=== PATIENT | male | born 1970 | race Caucasian/White ===

== ENCOUNTER → 2017-12-02 | Outpatient (CLI) | payer OTHER ==
--- NOTE | 2017-12-02 12:30 | Diagnostic Imaging Report ---
TECHNIQUE: Magnetic resonance imaging of the LEFT KNEE was performed WITHOUT injected contrast. HISTORY: Left knee pain, value for meniscus tear COMPARISON: None available. FINDINGS: LIGAMENTS AND TENDONS: ACL: Intact PCL: Intact Collateral ligaments: Intact Iliotibial band: Unremarkable Popliteal tendon: Intact Extensor mechanism: Intact JOINT: Menisci: Medial: Complex tear of the body and posterior horn with a dominant horizontal component. Lateral: Intact without tear. Articular Cartilage: Medial Compartment: Diffuse partial thickness cartilage loss with mild subchondral edema at the medial joint line. Lateral Compartment: No focal defect. Patellofemoral Compartment: No focal defect. Joint Fluid: Moderate joint effusion. No Quiroz's cyst. BONE: No acute fracture. SOFT TISSUES: Otherwise, unremarkable. IMPRESSION: Medial meniscus complex tear with dominant horizontal component to the body and posterior horn results in partial thickness cartilage loss. Signed by: Dr. Rickey Heaton M.D. on 12/02/2017 12:22 PM
== END ==
LOC: MRI 10:01
PROVIDERS: ATTEND Specialist
DX: S83.242A Other tear of medial meniscus, current injury, left knee, initial encounter (principal)

== ENCOUNTER → 2017-12-21 | Day surgery (SDC) | payer OTHER ==
[2017-12-20 13:25] LABS: BASOPHILS % 0.5 % (0.0-1.0); EOSINOPHILS # (AUTO) 0.4 (0.0-0.4); EOSINOPHILS % 4.5 % (0.0-6.0); HEMATOCRIT 38.1 % (38.2-49.6); HEMOGLOBIN 12.8 g/dL (14.0-18.0); LYMPHOCYTES # (AUTO) 2.3 (1.0-3.2); LYMPHOCYTES % 27.4 % (18.0-39.1); MEAN CORPUSCULAR HEMOGLOBIN 28.6 pg (28-32); MEAN CORPUSCULAR HGB CONC 33.6 g/dL (31-35); MEAN CORPUSCULAR VOLUME 85.2 fL (81-99); MONOCYTES # (AUTO) 0.9 (0.2-0.8); MONOCYTES % 11.3 % (4.4-11.3); NEUTROPHILS # (AUTO) 4.6 (2.1-6.9); NEUTROPHILS % 55.8 % (38.7-80.0); PLATELET COUNT 192 x10e3/uL (140-360); RED BLOOD COUNT 4.47 x10e6/uL (4.3-5.7); RED CELL DISTRIBUTION WIDTH 13.5 % (11.7-14.4)
[2017-12-20 13:44] LABS: ANION GAP 12.2 mmol/L (8-16); BLOOD UREA NITROGEN 14 mg/dL (7-26); BUN/CREATININE RATIO 16 (6-25); CALCIUM 9.1 mg/dL (8.4-10.2); CARBON DIOXIDE 29 mmol/L (22-29); CHLORIDE 105 mmol/L (98-107); CREATININE, SERUM 0.89 mg/dL (0.72-1.25); EST GLOMERULAR FILTRATION RATE > 60 ML/MIN (60-); GLUCOSE 91 mg/dL (74-118); POTASSIUM 4.2 mmol/L (3.5-5.1); SODIUM 142 mmol/L (136-145)
[~2017-12-21] MED LIST: ACETAMINOPHEN 1000 MG/100 ML IV ONE; AMLODIPINE BESYL5 MG PO; CARVEDILOL12.5 MG PO; CEFAZOLIN SOD 1 GM VIAL ONE; DEXAMETHASONE SOD PHOS INJ 4 MG/ML VIAL ONE; ELIQUIS PO; FENTANYL CITRATE/PF 100MCG/2 ML INJ ONE; FUROSEMIDE40 MG PO; GLYCOPYRROLATE INJ 1MG/ 5 ML SYR ONE; HYDRALAZINE HCL25 MG PO; KETOROLAC TROMETHAMINE 30 MG/ML VIAL ONE; LIDOCAINE HCL 2% LOCAL INJ 5 ML SDV VIAL INJ ONE; LOSARTAN POTAS100 MG PO; MAGNESIUM OXID400 MG PO; MIDAZOLAM HCL 2 MG/2 ML VIAL ONE; MORPHINE SULFATE 2 MG/ML SYR ONE; ONDANSETRON HCL INJ 2 MG/ML VIAL ONE; POTASSIUM CHLO10 ME1 PO; PROPOFOL IV EMULSION 10 MG/ML 20 ML VIAL ONE; SEVOFLURANE INHAL SOLN 250 ML PEN BTL ONE
--- OUTSIDE RECORDS SUMMARY | 2017-12-21 09:49 | XMS REPORT | Clinical Summary ---
Author Author [facility] Organization [facility] Address Unknown Phone Unavailable Care Team Providers Care Tumbler Machine Operator Name Role Phone Asked, Pcp PCP Unavailable Allergies No Known Allergies Current Medications Prescription Sig. Disp. Refills Start End Date Status Date furosemide (LASIX) 40 MG Take 40 mg by mouth Active tablet daily. magnesium oxide 250 mg Take 250 mg by mouth Active tablet daily. carvedilol (COREG) 25 MG Take 25 mg by mouth 2 Active tablet (two) times a day with meals. amIODarone (PACERONE) 400 Take 400 mg by mouth Active MG tablet daily. losartan (COZAAR) 100 MG Take 100 mg by mouth 06/14/20 Active tablet daily. 17 potassium chloride Take 10 mEq by mouth 2 05/15/20 Active (KLOR-CON) 10 MEQ CR (two) times a day. 17 tablet XARELTO 20 mg tablet 20 mg daily. 06/03/20 Active 17 VIAGRA 50 mg tablet 50 mg daily as needed. 04/12/20 Active 17 hydrALAZINE (APRESOLINE) Take 25 mg by mouth 3 07/14/20 Active 25 MG tablet (three) times a day. 17 apixaban (ELIQUIS) 5 mg Take 5 mg by mouth 2 01/03/20 Discontin tablet (two) times a day. 17 ued carvedilol (COREG) 25 MG Take 50 mg by mouth 2 12/24/19 Discontin tablet (two) times a day with 17 ued meals. 2 tabs amLODIPine (NORVASC) 5 MG Take 5 mg by mouth 2 01/03/20 Discontin tablet (two) times a day. 17 ued losartan (COZAAR) 100 MG Take 100 mg by mouth 12/24/19 Discontin tablet daily. 17 ued carvedilol (COREG) 12.5 Take 1 tablet (12.5 mg 60 tablet 0 12/24/19 01/03/20 Discontin MG tablet total) by mouth 2 (two) 17 17 ued times a day for 30 days. aspirin 81 mg chewable Chew 1 tablet (81 mg 30 tablet 0 12/24/19 tablet total) daily for 30 days. 17 17 losartan (COZAAR) 25 MG Take 1 tablet (25 mg 30 tablet 0 12/24/19 tablet total) by mouth daily for 17 17 30 days. traMADol (ULTRAM) 50 mg Take 1 tablet (50 mg 25 tablet 0 12/24/19 tablet total) by mouth every 6 17 17 (six) hours as needed for moderate pain for up to 14 days. metoprolol tartrate Take 1 tablet (50 mg 60 tablet 0 01/03/20 (LOPRESSOR) 50 mg tablet total) by mouth 2 (two) 17 17 times a day for 30 days. diltiazem (CardIZEM) 60 Take 1 tablet (60 mg 90 tablet 0 01/03/20 MG tablet total) by mouth every 8 17 17 (eight) hours for 30 days. potassium chloride Take 1 capsule (10 mEq 30 capsule 0 01/03/2002/17 (MICRO-K) 10 MEQ CR total) by mouth daily for 17 17 capsule 30 days. acetaminophen-codeine Take 1 tablet by mouth 30 tablet 0 01/03/20 (TYLENOL WITH CODEINE #3) every 4 (four) hours as 17 17 300-30 mg per tablet needed for moderate pain for up to 30 days. apixaban (ELIQUIS) 5 mg Take 5 mg by mouth 2 06/17/20 Discontin tablet (two) times a day. 17 ued potassium chloride Take 10 mEq by mouth 06/17/20 Discontin (K-DUR,KLOR-CON) 10 MEQ daily. 17 ued CR tablet amLODIPine (NORVASC) 5 mg Take 5 mg by mouth daily. 06/17/20 Discontin tablet 17 ued Active Problems Problem Noted Date Acute pulmonary edema 12/27/2016 Cardiac tamponade 12/26/2016 Pericardial effusion 12/26/2016 Respiratory insufficiency 12/16/2016 Postoperative pain 12/16/2016 Essential hypertension 12/16/2016 Postoperative anemia due to acute blood loss 12/16/2016 Paroxysmal atrial fibrillation 12/16/2016 S/P Maze operation for atrial fibrillation 12/16/2016 S/P AVR (aortic valve replacement) 12/16/2016 Aortic valve insufficiency 12/14/2016 Atrial fibrillation, persistent 11/02/2016 Persistent atrial fibrillation 09/20/2016 Long QT interval 09/20/2016 Encounters Date Type Specialty Care Team Description 10/05/2017 Orders Only Cardiology Deyvi Santoyo MD 09/19/2017 Office Visit Cardiology Deyvi Santoyo V., Persistent atrial MD fibrillation (Primary Dx) 06/17/2017 Office Visit Cardiology Deyvi Santoyo V., Persistent atrial MD fibrillation (Primary Dx) 04/25/2017 Office Visit Cardiology Deyvi Santoyo V., Atrial fibrillation, unspecified type (Primary Luan Bautista, Dx); Essential hypertension 02/23/2017 Hospital Procedural Cardiology Nikhil Horne MD Atrial fibrillation, Encounter unspecified type 02/23/2017 Anesthesia Procedural Cardiology Radha Ayala Event 02/23/2017 Procedure Pass Procedural Cardiology 02/23/2017 Surgery Procedural Cardiology Nikhil Horne MD Ep cardioversion [16325 (CPT )] 12/26/2016 Anesthesia Cardiothoracic Surgery Duke Mcdonald CRNA Event 12/26/2016 Procedure Pass Cardiothoracic Surgery 12/26/2016 Surgery Cardiothoracic Surgery Chandan Peng MD Creation, Pericardial Window 12/25/2016 Hospital Cardiology Nikhil Horne MD S/P AVR ( aortic valve - Encounter replacement) (Primary 01/02/2017 Dx); Cardiac tamponade 12/14/2016 Hospital Cardiology Nikhil Horne MD Aortic valve - Encounter insufficiency, 12/24/2016 unspecified etiology after 12/20/2016 Immunizations Name Dates Previously Given Next Due INFLUENZA QUAD PF 11/03/2016 Family History Medical History Relation Name Comments Hyperlipidemia Father Diabetes type II Mother Heart attack Mother Relation Name Status Comments Father Mother Social History Tobacco Use Types Packs/Day Years Used Date Never Smoker Smokeless Tobacco: Never Used Tobacco Cessation: Counseling Given: No Alcohol Use Drinks/Week oz/Week Comments Yes seldom Sex Assigned at Date Recorded Not on file Last Filed Vital Signs Vital Sign Reading Time Taken Blood Pressure 158/82 09/19/2017 4:26 PM RELOCATION ASSOCIATE Pulse 53 09/19/2017 4:26 PM RELOCATION ASSOCIATE Temperature 36.6 C (97.8 F) 02/23/2017 9:38 AM CDT Respiratory Rate 19 02/23/2017 12:15 PM CDT Oxygen Saturation 95% 02/23/2017 12:15 PM CDT Inhaled Oxygen - - Concentration Weight 132 kg (290 lb) 09/19/2017 4:26 PM RELOCATION ASSOCIATE Height 180.3 cm (5' 11") 09/19/2017 4:26 PM RELOCATION ASSOCIATE Body Mass Index 40.45 09/19/2017 4:26 PM RELOCATION ASSOCIATE Plan of Treatment Health Maintenance Due Date Last Done Comments INFLUENZA VACCINE 05/31/2017 11/03/2016 Implants Implanted Type Area Painter Maintenance Device Expiration Model / Identifier Date Serial / Lot Lead Pace David Mycrdl Unipol Tmpry Cardiovasc N/A: N/A [employer] [place] - [id number] / Streamline - [id number] ular CARDIAC SRGRY / Implanted: 12/15/2016 (Quantity not Implants on file) Lead Pace David Mycrdl Unipol Tmpry Cardiovasc N/A: N/A [employer] [place] - 6500F / Streamline - [id number] ular CARDIAC SRGRY / Implanted: 12/15/2016 (Quantity not Implants on file) Lead Pace David Mycrdl Unipol Tmpry Cardiovasc N/A: N/A [employer] [place] - 6500F / Streamline - [id number] ular CARDIAC SRGRY / Implanted: 12/15/2016 (Quantity not Implants on file) Valve Aortc Stntd Tiss Annls W/ Cardiovasc N/A: N/A ST RODOLFO 2018 [id number] 29A Linx Ac Tech 29mm Epic - [id number] ular STRUCTURAL 00 / Implanted: 12/16/2016 (Quantity not Implants HEART [id number] on file) [id number] / [id number]^ [id number] Chamber Sgl Iliana Dry Suct 1wy Vlv Surgical N/A: N/A TELEFLEX S 1100 Adlt Pedi - [id number] Implants; MEDICAL 08LF / Implanted: 12/15/2016 (Quantity not Expanders; / on file) Extenders; Surgical Wires Chamber Sgl Iliana Dry Suct 1wy Vlv Surgical N/A: N/A TELEFLEX S 1100 Adlt Pedi - [id number] Implants; MEDICAL 08LF / Implanted: 12/15/2016 (Quantity not Expanders; / on file) Extenders; Surgical Wires Chamber Sgl Iliana Dry Suct 1wy Vlv Surgical N/A: N/A TELEFLEX S 1100 Adlt Pedi - [id number] Implants; MEDICAL 08LF / Implanted: 12/15/2016 (Quantity not Expanders; / on file) Extenders; Surgical Wires [place] Perph Vasclr Ptfe 1.2x10cm Vascular N/A: N/A BARD PERIPHERAL [id number] / 1.65mm - [id number] Graft VASCULAR / Implanted: 12/15/2016 (Quantity not [id number] on file) Patch Vasclr Perph 0.8x8cm Vascular N/A: N/A SANDOVAL 04/26/2021 [id number] / Vascu-Guard - [id number] Graft BIOSCIENCE / Implanted: 12/16/2016 (Quantity not [id number] on file) [id number] Patch Vasclr Perph 2x9cm Vascular N/A: N/A SANDOVAL 01/11/2021 [id number] / Vascu-Guard - [id number] Graft BIOSCIENCE / Implanted: 12/16/2016 (Quantity not [id number] on file) 1265 Procedures Procedure Name Priority Date/Time Associated Diagnosis Comments CV CARDIAC EVENT MONITOR Routine 10/05/2017 12:00 AM RELOCATION ASSOCIATE CV CARDIAC EVENT MONITOR Routine 08/12/2017 12:00 AM CDT EP CARDIOVERSION Routine 02/23/2017 Atrial fibrillation, Results for this 11:25 AM CDT unspecified type procedure are in the results section. ECHOCARDIOGRAM 2D LIMITED Routine 01/02/2017 Results for this 8:30 AM RELOCATION ASSOCIATE procedure are in the results section. ECHOCARDIOGRAM 2D Routine 12/26/2016 Results for this COMPLETE W MMODE SPECTRAL 5:46 PM RELOCATION ASSOCIATE procedure are in the COLOR DOPPLER (24704) results section. OK AN ELECTIVE Routine 12/26/2016 ENDOTRACHEAL AIRWAY 2:51 PM RELOCATION ASSOCIATE Procedure Note - Duke Mcdonald CRNA - 12/26/2016 2:50 PM RELOCATION ASSOCIATE Airway Date/Time: 12/26/2016 2:18 PM Performed by: DUKE MCDONALD Authorized by: FLACA PEREZ Location: OR Urgency: Elective Difficult Airway: No Anesthesio logist: FLACA PEREZ Resident/C RNA: DUKE MCDONALD Performed by: resident/C RNA Preoxygena pavithra with 100% O2: Yes Mask Ventilatio n: Assisted mask (OA) Final Airway Type: Endotrache al airway Final Endotrache al Airway: ETT Cuffed: Yes Technique Used: Video laryngosco py Devices/Me thods Used in Placement: Intubatin g stylet Insertion Site: Oral ETT Size (mm): 8.0 Cuff at minimum occlusion pressure: Yes Measured from: Lips ETT to Lips (cm): 22 Placement Verified by: CO2 detection and direct visualizat ion Laryngosco pic view: Grade I - full view of glottis Rapid Sequence Induction (RSI): No Modified RSI: No Number of Attempts at Approach: 1 Elective glide scope used, previous intubation was Grade I view, OK INSERT NON-TUNNEL CV Routine 12/26/2016 Cardiac tamponade Results for this CATH 1:59 PM RELOCATION ASSOCIATE procedure are in the results section. after 12/20/2016 Results * CV Cardiac event monitor (10/05/2017) * ECG 12 lead (09/19/2017 4:27 PM) Only the most recent of 12 results within the time period is included. Component Value Ref Range Ventricular rate 54 Atrial rate 54 OK interval 192 QRSD interval 104 QT interval 504 QTC interval 477 P axis 1 77 QRS axis 1 79 T wave axis 45 EKG impression Sinus bradycardia-Otherwise normal ECG-In automated comparison with ECG of 17-JUN-2017 15:24,-No significant change was found- Specimen Performing Laboratory [facility] [address] [place] [address] * CV Cardiac event monitor (08/12/2017) * Cv electrophysiology procedure (02/23/2017 11:25 AM) Specimen Performing Laboratory [facility] [address] [place] [address] Narrative Cardiac Catheterization Operative Note Indio Rosario,[id number] y.o. male 02/23/2017; [facility] CARD [facility]UE[facility] 8 PROCEDURE ROOM 14 Procedure(s): Ep cardioversion Tolerated procedure well Condition: stable Complications:None; patient tolerated the procedure well. Findings: see note Procedure Details See note Pre-op Diagnosis: Atrial fibrillation, unspecified type [I48.91] Post-Op Diagnosis Codes: * Atrial fibrillation, unspecified type [I48.91] Surgeon(s) and Role: * Nikhil Horne MD - Primary Anesthesia: Anesthesia type not filed in the log. Blood Products Administered:none * Echocardiogram 2d limited (01/02/2017 8:30 AM) Specimen Performing Laboratory [facility] [address] [place] [address] Narrative Echocardiography Report [address] [address], [place] [address] Pat.Name:INDIO ROSARIO.ID:[id number] .Date: 01/02/2017Refer.MD:NIKHIL HORNE MD Exam Time: 8:01:00 AMStudy Type:Routine Echo Height:71inWeight:257lb BSA: 2.35 m2 DOBAge:1970 ,46Y Sex: MALEBP: 133/81 HR:64 bpmSonogrphr: FROILAN Clifton Pat. Stat.:Inpatient Room:[facility]0 A Study Status:Final Echo Event ID:[id number] Order ID:[id number] Reason for Study:S/P pericardial tamponade History / Clinical:Arrhythmias, Hypertension Procedures:2D Echo Race:C SUMMARY: No pericardial effusion. FINDINGS: LV: LV size is mildly enlarged. LV function is moderately depressed.Estimated EF is 35-39%. Overall wall motion is hypokinetic. RV: RV size is normal. RV function is mildly depressed. RV wall motionis mildly hypokinetic. LA: LA size is normal. RA: RA size is normal. AO: Aortic root diameter is mildly enlarged. KOURTNEY: No pericardial effusion. AV: Bioprosthetic aortic valve. Normal prosthetic valve velocity andgradient. Surgical Prosthetic AV Doppler velocity index is0.38 (normal>0.25). MV: No structural MV abnormalities noted. A trace of mitral regurgitation. PV: No structural PV abnormalities noted. TV: No structural TV abnormalities noted. Menjivar: LV relaxation is impaired. LV filling pressure is elevated. Other:Insufficient TR jet to estimate PA systolic pressure. MEASUREMENTS: 2D Parasternal [place] LVOT 2.4 cmIVSd 1 cm LVIDd5.8 cmIndex 2.5 cm/m LVPWd1.1 cm LVIDs4.7 cmLA Ds 5.2 cm LV%fs 18.3 % Ao Rtd 4 cm Index1.7 cm/m LA Sng Plane LA Area 19.8 cm2(8.8-23.4) LA Vol 56 ml Index23.8 ml/m LA LngAx 5.9 cm DOPPLER AV For Flow/MELANY AV pkVel 239.3 cm/s (100-170) AV AC/ET 0.5 AV mnVel 171.4 cm/Jessi TVI 46.9 cm AV pkPG 22.9 mmHgAVpkAcRt 6125.5 cm/s2 AV Mean G 13.8 mmHgAV DeRt 874.9 cm/s2 AV AC143 msec (83-118) AV Area1.8 cm2(3-5) AV ET274 msec LVOT For Flow LVOT Area4.5 cm2 LVOT SV 82.8 ml LVOTpkVel 87.2 cm/sHR 62 bpm LVOTpkPG 3 mmHgLVOT CO 5.1 l/min LVOTmnPG 2 mmHgLVOT CI 2.2 l/m/m2 LVOT TVI18.3 cm Signed 01/02/2017 02:54 PM Kamini Moeller M.D. Procedure Note Interface, Radiology Results In - 01/02/2017 2:55 PM [facility] Echocardiography Report [id number] [address] Pat.Name: INDIO ROSARIO.ID: [id number] .Date: 01/02/2017 Refer.MD: NIKHIL HORNE MD Exam Time: 8:01:00 AM Study Type:Routine Echo Height: 71in Weight: 257lb BSA: 2.35 m2 Age: 5 1970,46Y Sex: MALE BP: 133/81 HR: 64 bpm Sonogrphr: FROILAN Clifton Pat. Stat.:Inpatient Room: 970 A Study Status:Final Echo Event ID:[id number] Order ID: [id number] Reason for Study:S/P pericardial tamponade History / Clinical:Arrhythmias, Hypertension Procedures:2D Echo Race: C SUMMARY: No pericardial effusion. FINDINGS: LV: LV size is mildly enlarged. LV function is moderately depressed. Estimated EF is 35-39%. Overall wall motion is hypokinetic. RV: RV size is normal. RV function is mildly depressed. RV wall motion is mildly hypokinetic. LA: LA size is normal. RA: RA size is normal. AO: Aortic root diameter is mildly enlarged. KOURTNEY: No pericardial effusion. AV: Bioprosthetic aortic valve. Normal prosthetic valve velocity and gradient. Surgical Prosthetic AV Doppler velocity index is 0.38 (normal>0.25). MV: No structural MV abnormalities noted. A trace of mitral regurgitation. PV: No structural PV abnormalities noted. TV: No structural TV abnormalities noted. Menjivar: LV relaxation is impaired. LV filling pressure is elevated. Other: Insufficient TR jet to estimate PA systolic pressure. MEASUREMENTS: 2D Parasternal [place] LVOT 2.4 cm IVSd 1 cm LVIDd 5.8 cm Index 2.5 cm/m LVPWd 1.1 cm LVIDs 4.7 cm LA Ds 5.2 cm LV%fs 18.3 % Ao Rtd 4 cm Index 1.7 cm/m LA Sng Plane LA Area 19.8 cm2 (8.8-23.4) LA Vol 56 ml Index 23.8 ml/m LA LngAx 5.9 cm DOPPLER AV For Flow/MELANY AV pkVel 239.3 cm/s (100-170) AV AC/ET 0.5 AV mnVel 171.4 cm/s AV TVI 46.9 cm AV pkPG 22.9 mmHg AVpkAcRt 6125.5 cm/s2 AV Mean G 13.8 mmHg AV DeRt 874.9 cm/s2 AV AC 143 msec (83-118) AV Area 1.8 cm2 (3-5) AV ET 274 msec LVOT For Flow LVOT Area 4.5 cm2 LVOT SV 82.8 ml LVOTpkVel 87.2 cm/s HR 62 bpm LVOTpkPG 3 mmHg LVOT CO 5.1 l/min LVOTmnPG 2 mmHg LVOT CI 2.2 l/m/m2 LVOT TVI 18.3 cm Signed 01/02/2017 02:54 PM Kamini Moeller M.D. * Estimated GFR (01/02/2017 4:00 AM) Only the most recent of 14 results within the time period is included. Component Value Ref Range GFR Non Af Amer >90 mL/min/1.73 m2 GFR Af Amer >90 mL/min/1.73 m2 Comment: Chronic kidney disease: <60 mL/min/1.73m2 Kidney failure: <15 mL/min/1.73m2 The estimated GFR is calculated from the IDMS-traceable Modification of Diet in Renal Disease Equation. The accuracy of the calculation is poor when the creatinine is normal. Calculated values >90 mL/min/1.73m2 are not reported. This equation has not been validated in children (<18 years), women, the elderly (>70 years), or ethnic groups other than Caucasians and Americans. Specimen Performing Laboratory Plasma specimen [facility] DEPARTMENT OF PATHOLOGY AND GENOMIC MEDICINE [address] [place] [address] * Basic metabolic panel (01/02/2017 4:00 AM) Only the most recent of 13 results within the time period is included. Component Value Ref Range Sodium 142 135 - 148 mEq/L Potassium 3.7 3.5 - 5.0 mEq/L Chloride 100 98 - 112 mEq/L CO2 31 24 - 31 mEq/L Anion gap 11 7 - 15 mEq/L Comment: Starting from January , anion gap calculation no longer incorporates potassium. Please note the change. BUN 16 6 - 20 mg/dL Creatinine 0.9 0.7 - 1.2 mg/dL Glucose 85 65 - 99 mg/dL Calcium 8.6 8.3 - 10.2 mg/dL Specimen Performing Laboratory Plasma specimen [facility] DEPARTMENT OF PATHOLOGY AND GENOMIC [address] [address] * XR Chest 1 Vw Portable (12/31/2016 2:35 PM) Only the most recent of 9 results within the time period is included. Specimen Performing Laboratory [facility] [address] [place] [address] Narrative EXAMINATION: XR CHEST 1 VW PORTABLE CLINICAL HISTORY: Chest Tube Removal COMPARISON: Portable chest, obtained on 12/31/2016 at 0657 hours. FINDINGS: Progress examination again demonstrates postoperative changes from sternotomy. Pleural drainage tube is not appreciated. Vascular congestion, pleural fluid and pneumothorax are not seen. Left basilar volume loss is decreasing. Cardiac and mediastinal silhouettes are unchanged. IMPRESSION: Improving appearance the chest. [facility]-[id number] Procedure Note Interface, Radiology Results Incoming - 12/31/2016 2:44 PM RELOCATION ASSOCIATE EXAMINATION: XR CHEST 1 VW PORTABLE CLINICAL HISTORY: Chest Tube Removal COMPARISON: Portable chest, obtained on 12/31/2016 at 0657 hours. FINDINGS: Progress examination again demonstrates postoperative changes from sternotomy. Pleural drainage tube is not appreciated. Vascular congestion, pleural fluid and pneumothorax are not seen. Left basilar volume loss is decreasing. Cardiac and mediastinal silhouettes are unchanged. IMPRESSION: Improving appearance the chest. [facility]-[id number] * POC glucose (12/30/2016 12:16 PM) Only the most recent of 31 results within the time period is included. Component Value Ref Range POC glucose 99 65 - 99 mg/dL Comment: [facility] Notified RN Meter ID: [id number] [employer] Principal: Claudio Eli Specimen Performing Laboratory [facility] [place] [address] * CBC hemogram (12/30/2016 4:57 AM) Only the most recent of 4 results within the time period is included. Component Value Ref Range WBC 11.03 (H) 4.50 - 11.00 k/uL RBC 2.83 (L) 4.40 - 6.00 m/uL HGB 8.3 (L) 14.0 - 18.0 g/dL HCT 25.5 (L) 41.0 - 51.0 % MCV 90.1 82.0 - 100.0 fL MCH 29.3 27.0 - 34.0 pg MCHC 32.5 31.0 - 37.0 g/dL RDW - SD 44.9 37.0 - 55.0 fL MPV 9.9 8.8 - 13.2 fL Platelet count 279 150 - 400 k/uL Nucleated RBC 0.00 /100 WBC Specimen Performing Laboratory Blood [facility] DEPARTMENT OF PATHOLOGY AND GENOMIC MEDICINE [address] [place] [address] Narrative CBC only; Does not include a differential Deliver specimen immediately to the Core Laboratory. * Phosphorus level (12/30/2016 4:57 AM) Only the most recent of 8 results within the time period is included. Component Value Ref Range Phosphorus 3.7 2.4 - 4.5 mg/dL Specimen Performing Laboratory Plasma specimen [facility] DEPARTMENT OF PATHOLOGY AND GENOMIC MEDICINE [address] [place] [address] Narrative CBC only; Does not include a differential Deliver specimen immediately to the Core Laboratory. * Magnesium level (12/30/2016 4:57 AM) Only the most recent of 10 results within the time period is included. Component Value Ref Range Magnesium 1.9 1.6 - 2.6 mg/dL Specimen Performing Laboratory Plasma specimen [facility] DEPARTMENT PATHOLOGY AND [facility] MEDICINE [address] [place] [address] Narrative CBC only; Does not include a differential Deliver specimen immediately to the Core Laboratory. * Ionized calcium (12/30/2016 4:57 AM) Only the most recent of 4 results within the time period is included. Component Value Ref Range pH 7.52 Ionized calcium 1.08 (L) 1.11 - 1.32 mmol/L Specimen Performing Laboratory Plasma specimen [facility] DEPARTMENT OF PATHOLOGY AND GENOMIC MEDICINE [address] [place] [address] Narrative CBC only; Does not include a differential Deliver specimen immediately to the Core Laboratory. * CBC with platelet and differential (12/29/2016 2:50 AM) Only the most recent of 6 results within the time period is included. Component Value Ref Range WBC 11.31 (H) 4.50 - 11.00 k/uL RBC 2.77 (L) 4.40 - 6.00 m/uL HGB 8.1 (L) 14.0 - 18.0 g/dL HCT 25.1 (L) 41.0 - 51.0 % MCV 90.6 82.0 - 100.0 fL MCH 29.2 27.0 - 34.0 pg MCHC 32.3 31.0 - 37.0 g/dL RDW - SD 45.0 37.0 - 55.0 fL MPV 10.1 8.8 - 13.2 fL Platelet count 289 150 - 400 k/uL Nucleated RBC 0.00 /100 WBC Neutrophils 65.6 39.0 - 69.0 % Lymphocytes 20.5 (L) 25.0 - 45.0 % Monocytes 10.9 (H) 0.0 - 10.0 % Eosinophils 1.7 0.0 - 5.0 % Basophils 0.2 0.0 - 1.0 % Immature granulocytes 1.1 (H)Comment: "Immature granulocytes" 0.0 - 1.0 % (promyelocytes, myelocytes, metamyelocytes) Specimen Performing Laboratory Blood [facility] DEPARTMENT OF PATHOLOGY AND GENOMIC MEDICINE [address] [place] [address] Narrative Deliver specimen immediately to the Core Laboratory. * Partial thromboplastin time (12/28/2016 1:50 AM) Only the most recent of 3 results within the time period is included. Component Value Ref Range PTT 30.6 23.0 - 36.0 sec Comment: PTT therapeutic range for unfractionated heparin is 61.0-112.0 seconds which corresponds to Anti-Xa 0.3-0.7 U/ml. Specimen Performing Laboratory Blood [facility] DEPARTMENT OF PATHOLOGY AND GENOMIC MEDICINE [address] [place] [address] Narrative Deliver specimen immediately to the Core Laboratory. * Prothrombin time with INR (12/28/2016 1:50 AM) Only the most recent of 4 results within the time period is included. Component Value Ref Range Prothrombin time 18.4 (H) 12.0 - 15.0 sec INR 1.5 Comment: The International Normalized Ratio (INR) is a therapeutic monitoring tool for patients who are stable on oral anticoagulant therapy. An INR of 2.0-3.0 is suggested for deep vein thrombosis/pulmonary embolism. Specimen Performing Laboratory Blood [facility] PATHOLOGY [facility] MEDICINE [address] [place] [address] Narrative Deliver specimen immediately to the Core Laboratory. * Potassium, syringe (12/27/2016 10:54 AM) Only the most recent of 2 results within the time period is included. Component Value Ref Range Potassium, syringe 3.2 (L) 3.5 - 5.0 mEq/L Specimen Performing Laboratory Blood [facility] [place] [address] * Arterial blood gas (12/27/2016 10:54 AM) Only the most recent of 4 results within the time period is included. Component Value Ref Range pH, arterial 7.47 (H) 7.35 - 7.45 pCO2, arterial 32 (L) 35 - 45 mmHg pO2, arterial 152 (H) 80 - 90 mmHg Bicarbonate, arterial 23.1 21.0 - 28.0 mmol/L Base excess, arterial 0 -2 - 2 mEq/L O2 saturation, arterial 99 95 - 100 % Specimen Performing Laboratory Blood [facility] [place] [address] * Ionized calcium, arterial (12/27/2016 2:00 AM) Only the most recent of 3 results within the time period is included. Component Value Ref Range Ionized calcium, arterial 1.00 (L) 1.11 - 1.32 mmol/L Specimen Performing Laboratory Blood [facility] [place] [address] Narrative Deliver specimen immediately to the Core Laboratory. * Echocardiogram complete w contrast and 3D if needed (12/26/2016 5:46 PM) [facility] [address] [place] [address] Narrative Echocardiography Report [address] [place] [address] Pat.Name:INDIO ROSARIO Marlene.ID:[id number] .Date: 12/26/2016 Refer.MD:NIKHIL HORNE MD Exam Time: 4:12:00 PMStudy Type:Routine Echo Height:71inWeight:278lb BSA: 2.43 m2 DOBAge:1970 ,46Y Sex: MALEBP: 106/58 HR:129 bpm Sonogrphr: Maximiliano Swann RDCS [address] Status:Final Echo Event ID:[id number] Order ID:[id number] Reason for Study:Routine re-eval for surveillance of known ascending aortic dilation or hx of aortic dissection without a change in clinical status or cardiac exam when findings would not casino change attendant or therapy History / Clinical:Arrhythmias, Hypertension Procedures:2D Echo, Colorflow Doppler, Portable, Intravenous Optison Contrast Race:C FINDINGS: LV: LV size is mildly enlarged. There is moderate eccentric LV hypertrophy.[ LV mass 331 g/ LVMI 132 g/m2 and RWT 0.41] . LVfunction is mildly depressed. Septal motion is paradoxicalsecondary to cardiac surgery. Estimated EF is 45-49%.Biplane LVEF toassess regional wall motion. RV: RV size is normal. RV function is normal. LA: LA volume is mildly enlarged. RA: RA size is normal. AO: Aortic root diameter is not well visualized but grossly appearsmildly enlarged. KOURTNEY: Small posterolateral pericardial effusion. PLE:Pleural effusion is present. AV: Bioprosthetic aortic valve [29 mm Epic tissue valve] Normal prostheticvalve velocity and gradient. Surgical Prosthetic AVDoppler velocity index is 0.44 (normal>0.25). MV: Mild mitral annular calcification. PV: No structural PV abnormalities noted. A trace of pulmonic regurgitation. TV: No structural TV abnormalities noted. A trace of tricuspid regurgitation Other:Insufficient TR jet to estimate PA systolic pressure. MEASUREMENTS: 2D Parasternal [place] LVOT 2.6 cmLVPWd 1.2 cm LVIDd5.8 cmIndex 2.4 cm/m LA Ds5.4 cm LVIDs4.1 cmAo An 2.4 cm LV%fs 28.1 % Ao Rtd 4 cm Index1.6 cm/m IVSd 1.4 cm LV EF Biplane LTHTF780.2 ml (65-193) Index99.7 ml/m LV SV110.6 ml RZCEP697.5 mlLV EF 45.7 %(63-77) LA Sng Plane LA Area 26.4 cm2(8.8-23.4) LA Vol90.5 ml Index37.3 ml/m LA LngAx 6.4 cm RA Sng Plane RA Area 21.3 cm2(8.3-19.5) RA Vol 65 ml Index26.8 ml/m RA LngAx 6.1 cm DOPPLER AV For Flow/MELANY AV pkVel 279.4 cm/s (100-170) AV AC/ET 0.4 AV mnVel 181.6 cm/Jessi TVI 59.3 cm AV pkPG 31.2 mmHgAVpkAcRt 3451 cm/s2 AV Mean G 16.9 mmHgAV DeRt 855.9 cm/s2 AV AC136 msec (83-118) AV Area2.3 cm2(3-5) AV ET326 msec LVOT For Flow LVOT Area5.3 cm2 LVOT SV 136.8 ml SKGYrkSdv328.2 cm/sHR 52.9 bpm LVOTpkPG 7.3 mmHgLVOT CO 7.2 l/min LVOTmnPG 3.6 mmHgLVOT CI 3 l/m/m2 LVOT TVI25.8 cm Signed 12/26/2016 08:39 PM Nicky Johnson MD Procedure Note Interface, Radiology Results In - 12/26/2016 8:39 PM [employer] Echocardiography Report [id number]Name: INDIO ROSARIO Marlene.ID: [id number] .Date: 12/26/2016 Refer.MD: NIKHIL HORNE MD Exam Time: 4:12:00 PM Study Type:Routine Echo Height: 71in Weight: 278lb BSA: 2.43 m2 Age: 5 1970,46Y Sex: MALE BP: 106/58 HR: 129 bpm Sonogrphr: Maximiliano Swann RDCS Room: [place] [address] Study Status:Final Echo Event ID:[id number] Order ID: [id number] Reason for Study:Routine re-eval for surveillance of known ascending aortic dilation or hx of aortic dissection without a change in clinical status or cardiac exam when findings would not casino change attendant or therapy History / Clinical:Arrhythmias, Hypertension Procedures:2D Echo, Colorflow Doppler, Portable, Intravenous Optison Contrast Race: C FINDINGS: LV: LV size is mildly enlarged. There is moderate eccentric LV hypertrophy. [ LV mass 331 g/ LVMI 132 g/m2 and RWT 0.41]. LV function is mildly depressed. Septal motion is paradoxical secondary to cardiac surgery. Estimated EF is 45-49%. Biplane LVEF to assess regional wall motion. RV: RV size is normal. RV function is normal. LA: LA volume is mildly enlarged. RA: RA size is normal. AO: Aortic root diameter is not well visualized but grossly appears mildly enlarged. KOURTNEY: Small posterolateral pericardial effusion. PLE: Pleural effusion is present. AV: Bioprosthetic aortic valve [29 mm Epic tissue valve] Normal prosthetic valve velocity and gradient. Surgical Prosthetic AV Doppler velocity index is 0.44 (normal>0.25). MV: Mild mitral annular calcification. PV: No structural PV abnormalities noted. A trace of pulmonic regurgitation. TV: No structural TV abnormalities noted. A trace of tricuspid regurgitation Other: Insufficient TR jet to estimate PA systolic pressure. MEASUREMENTS: 2D Parasternal [place] LVOT 2.6 cm LVPWd 1.2 cm LVIDd 5.8 cm Index 2.4 cm/m LA Ds 5.4 cm LVIDs 4.1 cm Ao An 2.4 cm LV%fs 28.1 % Ao Rtd 4 cm Index 1.6 cm/m IVSd 1.4 cm LV EF Biplane LVEDV 242.2 ml (65-193) Index 99.7 ml/m LV SV 110.6 ml LVESV 131.5 ml LV EF 45.7 % (63-77) LA Sng Plane LA Area 26.4 cm2 (8.8-23.4) LA Vol 90.5 ml Index 37.3 ml/m LA LngAx 6.4 cm RA Sng Plane RA Area 21.3 cm2 (8.3-19.5) RA Vol 65 ml Index 26.8 ml/m RA LngAx 6.1 cm DOPPLER AV For Flow/MELANY AV pkVel 279.4 cm/s (100-170) AV AC/ET 0.4 AV mnVel 181.6 cm/s AV TVI 59.3 cm AV pkPG 31.2 mmHg AVpkAcRt 3451 cm/s2 AV Mean G 16.9 mmHg AV DeRt 855.9 cm/s2 AV AC 136 msec (83-118) AV Area 2.3 cm2 (3-5) AV ET 326 msec LVOT For Flow LVOT Area 5.3 cm2 LVOT SV 136.8 ml LVOTpkVel 135.2 cm/s HR 52.9 bpm LVOTpkPG 7.3 mmHg LVOT CO 7.2 l/min LVOTmnPG 3.6 mmHg LVOT CI 3 l/m/m2 LVOT TVI 25.8 cm Signed 12/26/2016 08:39 PM Nicky Johnson MD * ECG Pre/Post Op (12/26/2016 4:01 PM) Component Value Ref Range Ventricular rate 53 Atrial rate 53 OK interval 188 QRSD interval 100 QT interval 534 QTC interval 501 P axis 1 82 QRS axis 1 72 T wave axis 96 EKG impression Sinus bradycardia-Nonspecific T wave abnormality-Prolonged QT-Abnormal ECG-In automated comparison with ECG of 26-DEC-2016 12:21,-Nonspecific T wave abnormality no longer evident in Anterior leads-Reconfirmed by Wing BARNES, Benita Min ([id number]) on 12/27/2016 7:04:26 PM Specimen Performing Laboratory [facility] [address] [place] [address] * Fungus smear (12/26/2016 3:03 PM) Component Value Ref Range Fungus smear No fungi observed. Comment: Specimen Information Specimen Source: Pericardial fluid Specimen Site: Pericardium Specimen Performing Laboratory Pericardial fluid - [facility] DEPARTMENT OF PATHOLOGY AND GENOMIC MEDICINE Pericardium [address] [place] [address] * Aerobic culture (12/26/2016 3:03 PM) Component Value Ref Range Aerobic culture isolate No growth after 3 days. Comment: Specimen Information Specimen Source: Pericardial fluid Specimen Site: Pericardium Specimen Performing Laboratory Pericardial fluid - [facility] DEPARTMENT OF PATHOLOGY AND [facility] [place] [address] * Gram stain (12/26/2016 3:03 PM) Component Value Ref Range Gram stain isolate Occasional WBC's No organisms seen Comment: Specimen Information Specimen Source: Pericardial fluid Specimen Site: Pericardium Specimen Performing Laboratory Pericardial fluid - [facility] DEPARTMENT OF PATHOLOGY AND [facility] [place] [address] * AFB stain (12/26/2016 3:03 PM) Component Value Ref Range AFB stain No acid fast bacilli (AFB) seen. Comment: Specimen Information Specimen Source: Pericardial fluid Specimen Site: Pericardium Specimen Performing Laboratory Pericardial fluid [facility] DEPARTMENT OF PATHOLOGY [place] [address] * Anaerobic culture (12/26/2016 3:03 PM) Component Value Ref Range Anaerobic culture isolate No anaerobic organisms isolated. Comment: Specimen Information Specimen Source: Pericardial fluid Specimen Site: Pericardium Specimen Performing Laboratory Pericardial fluid [facility] DEPARTMENT OF PATHOLOGY AND GENOMIC MEDICINE Pericardium [address] [place] [address] * Sodium level, syringe (12/26/2016 2:32 PM) Component Value Ref Range Sodium, syringe 131 (L) 135 - 148 mEq/L Specimen Performing Laboratory Blood [facility] DEPARTMENT OF PATHOLOGY AND GENOMIC MEDICINE [address] [place] [address] * Hemoglobin, syringe (12/26/2016 2:32 PM) Component Value Ref Range Hemoglobin, syringe 8.0 (L) 14.0 - 18.0 g/dL Specimen Performing Laboratory Blood [facility] DEPARTMENT OF PATHOLOGY AND GENOMIC MEDICINE [address] [place] [address] * Glucose level, syringe (12/26/2016 2:32 PM) Component Value Ref Range Glucose, syringe 122 (H) 65 - 99 mg/dL Specimen Performing Laboratory Blood [facility] DEPARTMENT OF PATHOLOGY AND GENOMIC MEDICINE [address] [place] [address] * Arterial blood gas, corrected (12/26/2016 2:32 PM) Component Value Ref Range pH, arterial 7.35 7.35 - 7.45 pCO2, arterial 37 35 - 45 mmHg pO2, arterial 146 (H) 80 - 90 mmHg Temperature, Celsius 37.0 Degrees C O2 saturation, arterial 99 95 - 100 % pH, arterial corrected 7.35 pCO2, arterial corrected 37 mmHg pO2, arterial corrected 146 mmHg Base excess, arterial -5 (L) -2 - 2 mEq/L Specimen Performing Laboratory Blood [facility] DEPARTMENT OF PATHOLOGY AND GENOMIC MEDICINE [address] [place] [address] * AFB culture (12/26/2016 2:03 PM) Component Value Ref Range AFB culture isolate No growth after 6 weeks of incubation. Comment: Specimen Information Specimen Source: Pericardial fluid Specimen Site: Pericardium Specimen Performing Laboratory Pericardial fluid - [facility] DEPARTMENT OF PATHOLOGY AND GENOMIC MEDICINE Pericardium [address] [place] [address] * Fungus culture (12/26/2016 2:03 PM) Component Value Ref Range Fungus culture isolate No growth after 4 weeks of incubation. Comment: Specimen Information Specimen Source: Pericardial fluid Specimen Site: Pericardium Specimen Performing Laboratory Pericardial fluid - [facility] DEPARTMENT OF PATHOLOGY AND GENOMIC MEDICINE Pericardium [address] [place] [address] * CENTRAL LINE (12/26/2016 1:59 PM) Narrative Trung Cox MD 12/26/20161:59 PM Central Line Insertion Performed by: TRUNG COX Authorized by: TRUNG COX Consent: Consent obtained:Verbal and emergent situation Consent given by:Patient Risks discussed:Arterial puncture, incorrect placement, nerve damage, pneumothorax, infection and bleeding [place] protocol: Patient identity confirmed:Verbally with patient Pre-procedure details: Hand hygiene: Hand hygiene performed prior to insertion Sterile barrier technique: All elements of maximal sterile technique followed Skin preparation:2% chlorhexidine Skin preparation agent: Skin preparation agent completely dried prior to procedure Anesthesia (see MAR for exact dosages): Anesthesia method:Local infiltration Local anesthetic:Lidocaine 1% w/o epi Procedure details: Catheter type:Triple lumen Catheter size:8 Fr Catheter site: internal jugular vein Catheter Site Laterality:Right Landmarks identified: yes Ultrasound guidance: yes Sterile ultrasound techniques: Sterile gel and sterile probe covers were used Number of attempts:1 Successful placement: yes Post-procedure details: Post-procedure:Dressing applied and line sutured Assessment:Blood return through all ports and free fluid flow Patient tolerance of procedure:Tolerated well, no immediate complications * Insert arterial line (12/26/2016 1:57 PM) Narrative Trung Cox MD 12/26/20161:57 PM Arterial Line Insertion Date/Time: 12/26/2016 1:57 PM Performed by: TRUNG COX Authorized by: TRUNG COX Consent: Consent obtained:Verbal and emergent situation Consent given by:Patient Indications: Indications: hemodynamic monitoring and multiple ABGs Pre-procedure details: Skin preparation:2% Chlorhexidine Preparation: Patient was prepped and draped in sterile fashion Anesthesia (see MAR for exact dosages): Anesthesia method:Local infiltration Local anesthetic:Lidocaine 1% w/o epi Procedure details: Location:R radial Narayan's test performed: no Needle gauge:20 G Placement technique:Seldinger and ultrasound guided Number of attempts:2 Transducer: waveform confirmed Post-procedure details: Post-procedure:Sterile dressing applied and sutured CMS:Normal and unchanged Patient tolerance of procedure:Tolerated well, no immediate complications * Prepare RBC, 4 Units (12/26/2016 10:40 AM) Component Value Ref Range Product name Red Blood Cells -1, Leukored Unit number [id number] Product code [id number] Dispense status Transfused Blood expiration date 20161228 Blood type code 9500 Blood type O NEGATIVE Product name Apheresis Red Cell AS3 #2 LR Unit number [id number] Product code [id number] Dispense status Returned to BB not transfused Blood expiration date 20161228 Blood type code 9500 Blood type O NEGATIVE Product name Red Blood Cells -1, Leukored Unit number [id number] Product code [id number] Dispense status Returned to BB not transfused Blood expiration date 20170128 Blood type code 9500 Blood type O NEGATIVE Product name Red Blood Cells -1, Leukored Unit number [id number] Product code [id number] Dispense status Returned to not transfused Blood expiration date 20170119 Blood type code 9500 Blood type O NEGATIVE Specimen Performing Laboratory [facility] DEPARTMENT OF PATHOLOGY AND [facility] MEDICINE [address] [place] [address] * Type and screen (12/26/2016 10:40 AM) Component Value Ref Range ABO grouping O Rh type NEG Antibody screen (gel) NEG Specimen Performing Laboratory Blood [facility] [place] [address] * Lactic acid level (12/26/2016 10:40 AM) Only the most recent of 2 results within the time period is included. Component Value Ref Range Lactic acid 2.8 (H) 0.5 - 2.2 mmol/L Specimen Performing Laboratory Plasma specimen [facility] [place] [address] * Comprehensive metabolic panel (12/26/2016 10:40 AM) Component Value Ref Range Sodium 132 (L) 135 - 148 mEq/L Potassium 5.5 (H) 3.5 - 5.0 mEq/L Chloride 95 (L) 98 - 112 mEq/L CO2 20 (L) 24 - 31 mEq/L Anion gap 17 (H) 7 - 15 mEq/L Comment: Starting from January , anion gap calculation no longer incorporates potassium. Please note the change. BUN 49 (H) 6 - 20 mg/dL Creatinine 3.6 (H) 0.7 - 1.2 mg/dL Glucose 109 (H) 65 - 99 mg/dL Calcium 8.1 (L) 8.3 - 10.2 mg/dL Protein 6.3 6.3 - 8.3 g/dL Comment: 4.6-7.0 g/dL 1 week 4.4-7.6 g/dL 7 months-1year 5.1-7.3 g/dL 1-2 years 5.6-7.5 g/dL >3 years 6.0-8.0 g/dL 18-150 6.3-8.3 g/dL Albumin 2.6 (L) 3.5 - 5.0 g/dL A/G ratio 0.7 0.7 - 3.8 Alkaline phosphatase 68 40 - 129 U/L AST 904 (H) 10 - 50 U/L ALT 1,016 (H) 5 - 50 U/L Total bilirubin 0.7 0.0 - 1.2 mg/dL Specimen Performing Laboratory Plasma specimen [facility] DEPARTMENT OF PATHOLOGY AND GENOMIC MEDICINE [address] [place] [address] * Troponin (12/26/2016 12:02 AM) Component Value Ref Range Troponin <0.30 0.00 - 0.30 ng/mL Comment: 0.30 - 1.49 ng/ml May indicate increased risk of acute coronary syndrome. >=1.5 ng/ml Consistent with acute myocardial infarction. The diagnostic value of a single normal or non-diagnostic result is questionable. Serial samples at 2-6 hour intervals are required to rule out acute myocardial injury. Specimen Performing Laboratory Plasma specimen [facility] DEPARTMENT OF PATHOLOGY AND GENOMIC MEDICINE [address] [place] [address] * Anti Xa, low molecular weight (12/22/2016 5:15 AM) Component Value Ref Range Heparin name Lovenox Anti Xa, low molecular 0.85 0.60 - 1.00 U/mL weight Comment: Specimen must be drawn at least 4 hours post dose following a minimum of 3 doses. Therapeutic Range: 0.60 - 1.00 U/mL Specimen Performing Laboratory Blood [facility] DEPARTMENT OF PATHOLOGY AND GENOMIC MEDICINE [address] [place] [address] Narrative Please indicate the type of heparin the patient is taking. Draw specimen 4 hours after subcutaneous injection. Specimens received after 1300 hours will be frozen and performed on the next working day. Heparin Name->Lovenox after 12/20/2016 Insurance Payer Benefit Subscriber ID Type Phone Address Plan / Group [facility] xxxxxxxxx HMO/PPO THCARE CHOICE/CHO ICE +
--- OUTSIDE RECORDS SUMMARY | 2017-12-21 09:49 | XMS REPORT ---
Author Author [facility] Address Unknown Phone Unavailable Care Team Providers Care Student Name Role Phone RAHUL BECKETT Unavailable Unavailable Problems This patient has no known problems. Allergies, Adverse Reactions, Alerts This patient has no known allergies or adverse reactions. Medications This patient has no known medications. Results Test Description Test Time Test Comments Text Results Atomic Results Result Comments MRI KNEE LEFT WO [place] [address] Patient Name: INDIO ROSARIO MR #: [id number] : 1970 Age/Sex: 47/M Req #: [id number] Adm Physician: Ordered by: RAHUL BECKETT MD Report #: [id number] Location: MRI Room/Bed: Procedure: [id number] MRI/MRI KNEE LEFT WO Exam Date: 12/02/17 Exam Time: 1030 REPORT STATUS: Signed TECHNIQUE: Magnetic resonance imaging of the LEFT KNEE was performed WITHOUT injected contrast. HISTORY: Left knee pain, value for meniscus tear COMPARISON: None available. FINDINGS : LIGAMENTS AND TENDONS: ACL: Intact PCL: Intact Collateral ligaments: Intact Iliotibial band: Unremarkable Popliteal tendon: Intact Extensor mechanism: Intact JOINT: Menisci: Medial: Complex tear of the body and posterior horn with a dominant horizontal component. Lateral: Intact without tear. Articular Cartilage: Medial Compartment: Diffuse partial thickness cartilage loss with mild subchondral edema at the medial joint line. Lateral Compartment: No focal defect. Patellofemoral Compartment: No focal defect. Joint Fluid: Moderate joint effusion. No Quiroz's cyst. BONE: No acute fracture. SOFT TISSUES: Otherwise, unremarkable. IMPRESSION: Medial meniscus complex tear with dominant horizontal component to the body and posterior horn results in partial thickness cartilage loss. Signed by: Dr. Mandeep Gonsales M.D. on 12/02/2017 12:22 PM Dictated By: MANDEEP GONSALES MD 1222 Transcribed By: EPI on 12/02/17 1222 COPY TO: RAHUL BECKETT MD
--- NOTE | 2017-12-21 19:45 | Operative Report ---
DATE OF PROCEDURE: December 21, 2017 PREOPERATIVE DIAGNOSES 1. Left knee medial meniscus tear. 2. Left knee degenerative joint disease of the knee. 3. Right knee medial meniscus tear. 4. Right knee degenerative joint disease of the knee. OPERATIONS/PROCEDURES PERFORMED: Patient underwent 1. Examination of left knee. 2. Left knee arthroscopy. 3. Left knee partial medial meniscectomy. 4. Left knee partial lateral meniscectomy. 5. Left knee chondroplasty of patella, trochlea, medial femoral condyle, medial plateau, lateral femoral condyle, lateral plateau. 6. Right knee examination. 7. Right knee arthroscopy. 8. Right knee partial medial meniscectomy. 9. Right knee partial lateral meniscectomy. 10. Right knee chondroplasty of patella, trochlea, medial femoral condyle, medial plateau, lateral femoral condyle, lateral plateau. PRECISION INSPECTOR: None. ANESTHESIA: General intubation anesthesia. IV FLUIDS: Per the anesthesia record. DESCRIPTION OF OPERATIVE PROCEDURE: Mr. Martines was taken to the operating room, placed in the supine position on operating table. Following induction of general as well as endotracheal intubation, the patient's bilateral lower extremities were examined under anesthesia. He had normal-appearing knees bilaterally. He had effusions bilaterally. His ligaments were stable bilaterally. The patient's bilateral lower extremities were prepped, draped in standard surgical fashion. The left knee surgery was performed first. A standard 2-port technique was used to provide the left knee arthroscopic evaluation. Examination of the suprapatellar pouch, medial lateral gutters of the left knee demonstrated chondromalacia of the patellar and trochlear surfaces. There were no loose bodies. The scope was advanced in the medical compartment. Examination of the medial compartment demonstrated a torn medial meniscus. There was also chondromalacia of the medial femoral condyle and medial plateau. A combination of biting forceps and a motorized shaver were used to resect the torn portion of meniscus. Chondroplasties of the medial femoral condyle and medial plateau performed at this time. The scope was then advanced to the intercondylar notch. Anterior cruciate ligament was found to be intact. Scope was advanced in lateral compartment. Examination of the lateral compartment demonstrated a tear in the posterior horn in the lateral meniscus. There also chondromalacia of articulating surfaces. A combination of biting forceps and a motorized shaver were used to resect the torn portion of meniscus. Chondroplasties of the lateral femoral condyle and the lateral plateau performed at this time. Scope was then placed in suprapatellar pouch and chondroplasty of the patellar and trochlea were performed. The knee was deflated with sterile normal saline. Each of the portal sites were closed using 4-0 nylon suture. The portal sites as well as knee itself were then checked with 0.5% Marcaine with epinephrine. Attention was then turned to the patient's right knee. Again, a 2-port technique used to provide this patient arthroscopic evaluation of the knee joint. The scope was placed in the knee joint atraumatically. Examination of the patellofemoral joint demonstrated evidence of chondromalacia particularly on the trochlea. There was an area of full-thickness cartilage loss through the single point of the trochlea. Scope was then advanced through the medial compartment. Examination of the medial compartment demonstrated a torn and macerated posterior horn of the medial meniscus. There was also chondromalacia of articulating surfaces. A combination of biting forceps and motorized shaver were used to resect the torn portion of meniscus. Chondroplasties of the medial femoral condyle and medial plateau were performed at this time. Scope was then advanced to intercondylar notch. The anterior cruciate ligament identified found to be intact. The scope was then advanced in the lateral compartment and a tear in the posterior horn of the lateral meniscus was encountered. There was also chondromalacia of articulating surfaces. A combination of biting forceps and motorized shaver used to resect the torn portion of the meniscus. Chondroplasties of the lateral femoral condyle and latera plateau performed at this time. Scope was then placed in suprapatellar pouch and chondroplasty of the patella and trochlea were performed. The right knee was deflated with sterile normal saline. The portal sites were closed with 4-0 nylon suture. The knee was injected and sterile dressings were applied to both knees. The patient was then awakened, taken to post anesthesia care unit in stable condition. Job#: [id number]
== END | disposition home or self-care (01) ==
LOC: OR 09:46
PROVIDERS: ATTEND Specialist
DX: S83.222A Peripheral tear of medial meniscus, current injury, left knee, initial encounter (principal); S83.282A Other tear of lateral meniscus, current injury, left knee, initial encounter; S83.221A Peripheral tear of medial meniscus, current injury, right knee, initial encounter; S83.281A Other tear of lateral meniscus, current injury, right knee, initial encounter; S83.411A Sprain of medial collateral ligament of right knee, initial encounter; M22.42 Chondromalacia patellae, left knee; M22.41 Chondromalacia patellae, right knee; M17.0 Bilateral primary osteoarthritis of knee; I48.91 Unspecified atrial fibrillation; I10 Essential (primary) hypertension; G47.33 Obstructive sleep apnea (adult) (pediatric); X58.XXXA Exposure to other specified factors, initial encounter; Z01.810 Encounter for preprocedural cardiovascular examination; Z01.812 Encounter for preprocedural laboratory examination; Z79.02 Long term (current) use of antithrombotics/antiplatelets; Z68.43 Body mass index [BMI] 50.0-59.9, adult
CPT/HCPCS: 29880; 36415; 80048; 85025; 93005; J0690; J1100; J1885; J2001; J2250; J2270; J2405